=== PATIENT | female | born 1995 | race Caucasian/White ===

== ENCOUNTER 2017-08-25 05:29 | Emergency (ER) | payer OTHER ==
[2017-08-25] MEDS: traMADol 50 MG TAB PO (07:47)
[2017-08-25 07:50] LABS: BASO % 0.3 % (0.0-1.0); EOS # 0.1 10^3/uL (0.0-0.50); EOS % 0.6 % (0.0-3.0); IMMATURE GRANULOCYTE # 0.1 10^3/uL (0-0); IMMATURE GRANULOCYTE % 0.7 % (0-0); LYMPH # 1.3 10^3/uL (1.5-6.5); LYMPH % 11.9 % (24.0-44.0); MEAN CORPUSCULAR HEMOGLOBIN 31.8 pg (27.0-33.0); MEAN CORPUSCULAR HGB CONC 35.1 g/dl (32.0-36.5); MEAN CORPUSCULAR VOLUME 90.6 fl (80.0-96.0); MONO # 0.6 10^3/uL (0.0-0.8); MONO % 5.3 % (0.0-5.0); NEUTROPHILS # 8.8 10^3/uL (1.8-7.7); NEUTROPHILS % 81.2 % (36.0-66.0); PLATELET COUNT, AUTOMATED 382 10^3/uL (150-450); RED CELL DISTRIBUTION WIDTH 10.8 % (11.5-14.5); WHITE BLOOD COUNT 10.8 10^3/uL (4.0-10.0)
[2017-08-25 08:19] LABS: ANION GAP 6 MEQ/L (8-16); BLOOD UREA NITROGEN 10 MG/DL (7-18); CALCIUM LEVEL 8.6 MG/DL (8.5-10.1); CARBON DIOXIDE LEVEL 29 MEQ/L (21-32); CHLORIDE LEVEL 105 MEQ/L (98-107); CREATININE FOR GFR 0.69 MG/DL (0.55-1.02); GLUCOSE, FASTING 91 MG/DL (70-105); POTASSIUM SERUM 4.6 MEQ/L (3.5-5.1); SODIUM LEVEL 140 MEQ/L (136-145)
== END 2017-08-25 09:54 | disposition home or self-care (01) ==
LOC: M ED 05:29
DX: N83.201 Unspecified ovarian cyst, right side (principal); N83.202 Unspecified ovarian cyst, left side; R10.2 Pelvic and perineal pain; Z79.899 Other long term (current) drug therapy
CPT/HCPCS: 76856

== ENCOUNTER 2018-01-26 05:43 | Day surgery (SDC) | payer OTHER ==
[2018-01-26] MEDS ORDERED: LIDOCAINE 1% MDV 20ML VIAL SQ (06:00)
[2018-01-26 06:01] LABS: HEMATOCRIT 34.2 % (36.0-47.0); HEMOGLOBIN 12.3 g/dl (12.0-15.5); MEAN CORPUSCULAR HEMOGLOBIN 32.7 pg (27.0-33.0); PLATELET COUNT, AUTOMATED 238 10^3/uL (150-450); RED BLOOD COUNT 3.76 10^6/uL (4.00-5.40); RED CELL DISTRIBUTION WIDTH 11.7 % (11.5-14.5); WHITE BLOOD COUNT 6.2 10^3/uL (4.0-10.0)
[2018-01-26] MEDS: LR 1,000 ML IV (06:11)
[2018-01-26 06:27] LABS: HCG, SERUM QUANTITATIVE < 1.0 MIU/ML
[2018-01-26] MEDS ORDERED: LIDOCAINE 2% INJ 100 MG/5 ML SDV (FOR ANES.) As Ordered (07:06)
[2018-01-26] MEDS ORDERED: fentaNYL 250 MCG/5 ML INJECTION (J3010) As Ordered (07:06)
[2018-01-26] MEDS ORDERED: ROCURONIUM BROMIDE 50 MG/5 ML VIAL As Ordered (07:06)
[2018-01-26] MEDS ORDERED: PROPOFOL 200 MG/20 ML VIAL As Ordered (07:06)
[2018-01-26] MEDS ORDERED: MIDAZOLAM INJ 2 MG/2 ML VIAL (J2250) As Ordered (07:07)
[2018-01-26] MEDS ORDERED: dexameTHASONE 4 MG/ML 1ML VIAL (J1100) As Ordered ×2 (08:14→08:15)
[2018-01-26] MEDS ORDERED: ONDANSETRON 4MG/2ML VIAL (J2405) As Ordered (08:14)
[2018-01-26] MEDS ORDERED: KETOROLAC 60 MG/2 ML VIAL (J1885) As Ordered (08:14)
[2018-01-26] MEDS ORDERED: GLYCOPYRROLATE INJ 0.2 MG/ML 2 ML VIAL As Ordered (08:17)
[2018-01-26] MEDS ORDERED: NEOSTIGMINE 10 MG/10 ML VIAL (J2710) As Ordered (08:17)
[2018-01-26] MEDS: METHYLENE BLUE 0.5% (5MG/ML) 10 ML AMP (PROVAYBLUE)(Q9968 PER 1MG) As Ordered (08:36)
[2018-01-26] MEDS: BUPIVACAINE HCL 0.25% 30 ML VIAL As Ordered (08:38)
[2018-01-26] MEDS ORDERED: fentaNYL 100 MCG/2 ML INJECTION (J3010) IV (09:30)
[2018-01-26] MEDS ORDERED: MORPHINE 4 MG/ML 1ML VIAL/SYRINGE (J2270) IV (09:30)
[2018-01-26] MEDS ORDERED: ONDANSETRON 4MG/2ML VIAL (J2405) IV (09:30)
[2018-01-26] MEDS ORDERED: KETOROLAC 30 MG/ML VIAL (J1885) IV (09:30)
[2018-01-26] MEDS ORDERED: oxyCODONE 5MG TAB PO (09:30)
[2018-01-26] MEDS ORDERED: LR 1,000 ML IV (09:30)
[2018-01-26] MEDS ORDERED: diphenhydrAMINE INJ 50MG/ML VIAL (J1200) As Ordered (11:08)
[2018-01-26] MEDS: diphenhydrAMINE INJ 50MG/ML VIAL (J1200) IV (11:20)
== END 2018-01-26 13:37 | disposition home or self-care (01) ==
LOC: M SDC 05:43
DX: N73.6 Female pelvic peritoneal adhesions (postinfective) (principal); N83.8 Other noninflammatory disorders of ovary, fallopian tube and broad ligament; A56.11 Chlamydial female pelvic inflammatory disease; F43.23 Adjustment disorder with mixed anxiety and depressed mood; R07.1 Chest pain on breathing
CPT/HCPCS: 58350

== ENCOUNTER 2018-05-12 21:56 | Emergency (ER) | payer OTHER ==
[2018-05-13] MEDS: METOCLOPRAMIDE INJ 10MG/2ML VIAL (J2765) IV (01:00)
[2018-05-13] MEDS: KETOROLAC 30 MG/ML VIAL (J1885) IV (01:00)
[2018-05-13] MEDS: NS 1,000 ML IV (01:00)
[2018-05-13] MEDS: diphenhydrAMINE INJ 50MG/ML VIAL (J1200) IV (01:00)
== END 2018-05-13 03:35 | disposition home or self-care (01) ==
LOC: M ED 21:56
DX: S06.0X0A Concussion without loss of consciousness, initial encounter (principal); W50.0XXA Accidental hit or strike by another person, initial encounter; Y92.84 Military training ground as the place of occurrence of the external cause; Y93.89 Activity, other specified; Y99.1 Military activity; Z88.6 Allergy status to analgesic agent
CPT/HCPCS: J1200

== ENCOUNTER 2018-08-20 08:48 | Emergency (ER) | payer OTHER ==
[2018-08-20 09:34] LABS: BASO % 0.2 % (0.0-1.0); EOS % 0.7 % (0.0-3.0); HEMATOCRIT 36.7 % (36.0-47.0); HEMOGLOBIN 13.1 g/dl (12.0-15.5); IMMATURE GRANULOCYTE % 0.4 % (0-3.0); LYMPH # 1.6 10^3/uL (1.5-6.5); LYMPH % 29.6 % (24.0-44.0); MEAN CORPUSCULAR HEMOGLOBIN 32.4 pg (27.0-33.0); MEAN CORPUSCULAR HGB CONC 35.7 g/dl (32.0-36.5); MEAN CORPUSCULAR VOLUME 90.8 fl (80.0-96.0); MONO # 0.3 10^3/uL (0.0-0.8); MONO % 6.3 % (0.0-5.0); NEUTROPHILS # 3.4 10^3/uL (1.8-7.7); NEUTROPHILS % 62.8 % (36.0-66.0); PLATELET COUNT, AUTOMATED 238 10^3/uL (150-450); RED BLOOD COUNT 4.04 10^6/uL (4.00-5.40); RED CELL DISTRIBUTION WIDTH 11.2 % (11.5-14.5); WHITE BLOOD COUNT 5.4 10^3/uL (4.0-10.0)
[2018-08-20 10:06] LABS: ANION GAP 8 MEQ/L (8-16); BLOOD UREA NITROGEN 9 MG/DL (7-18); CALCIUM LEVEL 8.5 MG/DL (8.5-10.1); CARBON DIOXIDE LEVEL 25 MEQ/L (21-32); CHLORIDE LEVEL 106 MEQ/L (98-107); CREATININE FOR GFR 0.71 MG/DL (0.55-1.30); GLUCOSE, FASTING 99 MG/DL (70-100); POTASSIUM SERUM 4.4 MEQ/L (3.5-5.1); SODIUM LEVEL 139 MEQ/L (136-145)
[2018-08-20 10:10] LABS: CONTROL LINE HCG INT CTR LINE PRESENT; HCG, SERUM QUALITATIVE POSITIVE (NEGATIVE)
[2018-08-20 10:30] LABS: AMORPHOUS SEDIMENT SMALL (NEGATIVE); APPEARANCE, URINE HAZY (CLEAR); BACTERIA, URINE AUTO NEGATIVE (NEGATIVE); BILIRUBIN, URINE AUTO NEGATIVE (NEGATIVE); BLOOD, URINE BLOOD NEGATIVE (NEGATIVE); COLOR, URINE YELLOW (YELLOW); GLUCOSE, URINE (UA) AUTO NEGATIVE (NEGATIVE); KETONE, URINE AUTO NEGATIVE (NEGATIVE); LEUKOCYTE ESTERASE, URINE AUTO NEGATIVE (NEGATIVE); MUCUS, URINE SMALL (NEGATIVE); NITRITE, URINE AUTO NEGATIVE (NEGATIVE); PROTEIN, URINE AUTO NEGATIVE (NEGATIVE); RBC, URINE AUTO 1 /HPF (0-3); SPECIFIC GRAVITY URINE AUTO 1.013 (1.002-1.035); SQUAMOUS EPITHELIAL CELL UR AU 3 /HPF (0-6); UROBILINOGEN, URINE AUTO 0.2 mg/dL (0.0-2.0); WBC, URINE AUTO 2 /HPF (0-3)
[2018-08-20 12:36] LABS: HCG, SERUM QUANTITATIVE 1384 MIU/ML
== END 2018-08-20 12:10 | disposition home or self-care (01) ==
LOC: M ED 08:48
DX: O99.89 Other specified diseases and conditions complicating pregnancy, childbirth and the puerperium (principal); R10.2 Pelvic and perineal pain; Z87.42 Personal history of other diseases of the female genital tract; Z3A.01 Less than 8 weeks gestation of pregnancy; Z88.6 Allergy status to analgesic agent
CPT/HCPCS: 76801

== ENCOUNTER → 2018-09-23 | Outpatient (CLI) | payer OTHER ==
[~2018-09-23] MED LIST: MELO7.5T7 PO; TRAM50TA2 PO; ULTR50TA8 PO
--- NOTE | 2018-09-23 16:26 | REP ---
Emergency first trimester obstetric sonography: History: Abdominal cramping, possible incomplete . Sonographic findings: Transabdominal and transvaginal scanning are performed. Uterine dimensions are 8.6 x 4.4 x 5.7 cm. Endometrial echo is 1.8 cm thick. No intrauterine gestation is seen. The endometrium is slightly heterogeneous. There is a trace of free fluid in the cul-de-sac. A normal left ovary is seen with dimensions of 2.9 x 2.5 x 1.9 cm. Right ovary measures 3.8 x 1.7 x 3.1 cm. There is a 1.5 cm hypoechoic cyst in the right ovary. There are two paraovarian cysts measuring 0.9 and 0.7 cm in diameter. Impression: Empty uterus. No free fluid or adnexal mass lesion. Small right paraovarian cysts. Clinical and possibly sonographic followup suggested. Electronically Signed by Jani Chinchilla MD 09/23/2018 05:27 P
== END ==
LOC: M RAD 14:26
PROVIDERS: ATTEND Nurse Practitioner Family
DX: O03.4 Incomplete spontaneous abortion without complication (principal); N83.291 Other ovarian cyst, right side; Z32.01 Encounter for pregnancy test, result positive; R10.9 Unspecified abdominal pain

== ENCOUNTER → 2019-05-24 | Outpatient (CLI) | payer OTHER ==
--- NOTE | 2019-05-24 17:34 | REP ---
TRIPLE PHASE BONE SCAN, PELVIS AND HIPS: Following the intravenous administration of 21.4 millicuries of technetium 99M MDP, patient's pelvis and hips are imaged in the flow phase in the anterior and posterior projections followed by immediate blood pool and 2.5 hour delayed images in multiple projections. There is no abnormal blood flow with blood pooling. Delayed images show symmetrical uptake throughout the osseous structures of the pelvis and hips. No stress fracture is seen. The joint spaces appear symmetrical scintigraphically. IMPRESSION: No compelling scintigraphic evidence of stress fracture. Electronically Signed by Curtis Wakefield MD 05/25/2019 11:13 A
== END ==
LOC: M RAD 09:48
PROVIDERS: ATTEND Physician Assistant Medical
DX: M25.552 Pain in left hip (principal)